=== PATIENT | female | born 1990 | race Caucasian/White ===

== ENCOUNTER 2024-04-05 21:47 | Emergency (ER) | payer BC, SELFPAY ==
[2024-04-05 21:51] VITALS: BP 143/99; PULSE 91; RESP 14; TEMP 36.8; O2SAT 100; BMI 20.1
[2024-04-05] MEDS: ondansetron 2 mg/ML SDV 2 mL 8 MG IVP (22:29)
[2024-04-05] MEDS: sodium chloride 0.9% 1,000 ML 999 ML IV ×2 (22:29→23:56)
[2024-04-05 22:40] LABS: Basophils # 0.1 10^3/uL (0.0-0.1); Basophils % 0.4 %; Eosinophils # 0.2 10^3/uL (0.0-0.8); Eosinophils % 0.5 %; Hematocrit 46.1 % (36-47); Lymphocytes # 1.7 10^3/uL (0.8-4.8); Lymphocytes % 5.8 %; Mean Corpuscular HGB Conc 34.7 g/dL (30-55); Mean Corpuscular Hemoglobin 29.5 pg (27-33); Mean Corpuscular Volume 85.1 fl (85-98); Mean Platelet Volume 9.3 fL (7.4-10.4); Monocytes # 1.6 10^3/uL (0.2-0.9); Monocytes % 5.6 %; Neutrophils # 24.77 10^3/uL (1.8-7.7); Neutrophils % 86.7 %; Nucleated Red Blood Cells % 0 %; Platelet Count 315 10^3/cmm (157-399); Red Blood Count 5.42 10^6/uL (3.85-5.65); Red Cell Distribution Width 11.8 % (12.1-15.1); White Blood Count 28.59 10^3/uL (3.29-11.43)
[2024-04-05 22:57] LABS: Alanine Aminotransferase 19 U/L (0-33); Albumin Level 4.4 g/dL (3.5-5.2); Alkaline Phosphatase 59 U/L (35-105); Aspartate Amino Transferase 15 U/L (0-32); Blood Urea Nitrogen 14 mg/dL (6-20); Calcium 9.4 mg/dL (8.5-10.5); Carbon Dioxide 20 mmol/L (22-29); Chloride 102 mmol/L (98-107); Creatinine Clr Calc Pharmacy 91.1318; Globulin 3.5 g/dL (1.3-4.6); Glomerular Filtration Rate 82.1 mL/min (90-130); Glucose 205 mg/dL (65-115); Magnesium 1.7 mg/dL (1.7-2.3); Osmolality Calculated 294 mOsm/kg (285-295); Sodium 139 mmol/L (136-145); Total Bilirubin 1.3 mg/dL (0.15-1.2); Total Protein 7.9 g/dL (6.6-8.7)
[2024-04-05 22:58] LABS: Lactic Sepsis W/Reflex 2.4 mmol/L (0.5-2.2)
[2024-04-05 23:02] LABS: Anion Gap 21.2 (5-19); Potassium 4.2 mmol/L (3.5-5.1)
[2024-04-05 23:29] LABS: Procalcitonin 0.04 ng/mL (0-0.5)
[2024-04-05 23:29] LABS: Add Urine Microscopic? YES; Bilirubin Urine 1+ (Negative); Blood Urine 2+ (Negative); Glucose Urine UA 1+ (Normal); Ketones Urine 3+ (Negative); Leukocyte Esterase Urine 1+ (Negative); Nitrate Urine Negative (Negative); Protein Urine Trace (Negative); Specific Gravity, Urine 1.025 (1.005-1.030); Urine Appearance Slightly Cloudy (CLEAR); Urine Color Yellow (Yellow); Urobilinogen Urine 1 mg/dL (Negative); pH Urine 5 (5-7)
[2024-04-05] MEDS: metoclopramide 5 mg/mL SDV 2 mL 10 MG IVP (23:29)
[2024-04-05 23:30] LABS: Add Urine Culture? No; Bacteria Urine 2+ /hpf; Mucus Urine 2+ /hpf; RBC Urine 0-4 /hpf (0-2)
[2024-04-05 23:32] VITALS: BP 125/80; PULSE 91; RESP 16; O2SAT 99
--- NOTE | 2024-04-05 23:47 | ED_ITS ---
HPI - Nausea/Vomiting/Diarrhea 2 General: Chief complaint: Nausea/Vomiting/Diarrhea Stated complaint: Throwing up Time Seen by Provider: 04/05/24 22:08 History of Present Illness: Patient presents to the ER for evaluation of nausea vomiting. Patient said this been going on for about a week but today got so bad she vomited about 20 times and is dry heaving. Patient is also having some diarrhea and a low-grade fever. Patient is unsure if she ate something funny however did she take a THC gummy earlier to coming to the ER hoping that that would help and it did not help. Patient states approximate 1 week ago when this started she went to the urgent care got diagnosed with a stomach virus and however they put her on prednisone, Flonase, Zyrtec, and Zofran and she has been taken these during this entire time. Have not helped. Review of Systems 2 General: Reports: 10 or more systems reviewed and unremarkable except in HPI and below Physical Exam 2 Const: COMMON NORMALS: no acute distress, average body habitus, patient oriented x3, no limitations, healthy appearing, alert and well nourished HENMT: COMMON NORMALS: normocephalic, atraumatic, hearing grossly normal bilaterally, external ears normal, Normal external nose present and moist oral mucous membranes HEAD & SCALP: normocephalic and atraumatic NOSE: Normal external nose present EXTERNAL EAR: Yes external ears normal Neck/C-Spine: COMMON NORMALS: no JVD Chest: COMMONS NORMALS: normal inspection of the chest and normal palpation of entire chest wall Resp: COMMON NORMALS: normal respiratory effort, No retractions, No use of accessory muscles and clear to auscultation bilaterally AUSCULTATION: clear to auscultation bilaterally Cardio: COMMON NORMALS: no JVD, regular rate, regular rhythm, S1 normal heart sound present, S2 normal heart sound present, No gallops present (Cardio), No clicks present (Cardio), No murmurs present (Cardio) and No rub (Cardio) R ATE: regular rate RHYTHM: regular rhythm HEART SOUNDS: S1 normal heart sound present and S2 normal heart sound present GI: COMMON NORMALS: Normal to inspection, nondistended, normoactive bowel sounds present, Soft to palpation, non-tender, No hepatosplenomegaly present and no masses PALPATION: Yes Soft to palpation and Yes No hepatosplenomegaly present Neuro: COMMON NORMALS: patient oriented x3 SENSORIUM/ORIENTATION: Yes alert Course 2 Vital Signs: Vital signs: Vital Signs Temperature 98.2 F 04/05/24 21:51 Pulse Rate 91 04/05/24 23:32 Respiratory Rate 16 04/05/24 23:32 Blood Pressure 125/80 04/05/24 23:32 Pulse Oximetry 99 04/05/24 23:32 Oxygen Delivery Me thod Room Air 04/05/24 23:32 MDM - Nausea/Vomiting/Diarrhea Medical Decision Making Patient presents with uncontrolled nausea vomiting with mild diarrhea. Patient had 2 L normal saline bolus along with 8 mg Zofran 10 mg Reglan patient is feeling much better. Lab work other than her white count being elevated 28.5 which is thought to be due to the aggressive nausea and vomiting she been having is essentially unremarkable. Does show she may be mildly dehydrated. Patient feels much better is ready go home. Patient be discharged Differential Diagnosis Likely gastroenteritis Medical Records I reviewed the patient's medical records. Lab Data I reviewed the patient's lab results. 04/05/24 22:32 04/05/24 22:32 Laboratory Results WBC 28.59 10^3/uL (3.29-11.43) H 04/05/24 22:32 RBC 5.42 10^6/uL (3.85-5.65) 04/05/24 22:32 Hgb 16.00 g/dL (11.27-16.99) 04/05/24 22:32 Hct 46.1 % (36-47) 04/05/24 22:32 MCV 85.1 fl (85-98) 04/05/24 22:32 MCH 29.5 pg (27-33) 04/05/24 22:32 MCHC 34.7 g/dL (30-55) 04/05/24 22:32 RDW 11.8 % (12.1-15.1) L 04/05/24 22:32 Plt Count 315 10^3/cmm (157-399) 04/05/24 22:32 MPV 9.3 fL (7.4-10.4) 04/05/24 22:32 Neut % (Auto) 86.7 % 04/05/24 22:32 Lymph % (Auto) 5.8 % 04/05/24 22:32 [place] % (Auto) 5.6 % 04/05/24 22:32 Eos % (Auto) 0.5 % 04/05/24:32 Baso % (Auto) 0.4 % 04/05/24 22:32 Neut # (Auto) 24.77 10^3/uL (1.8-7.7) H 04/05/24 22:32 Lymph # (Auto) 1.7 10^3/uL (0.8-4.8) 04/05/24 22:32 [place] # (Auto) 1.6 10^3/uL (0.2-0.9) H 04/05/24 22:32 Eos # (Auto) 0.2 10^3/uL (0.0-0.8) 04/05/24: Baso # (Auto) 0.1 10^3/uL (0.0-0.1) 04/05/24 22:32 Nucleated RBC % (auto) 0 % 04/05/24 22: Nucleated RBCs # 0.0 /100WBC 04/05/24 22:32 Sodium 139 mmol/L (136-145) 04/05/24 22:32 Potassium 4.2 mmol/L (3.5-5.1) 04/05/24 22:32 Chloride 102 mmol/L (98-107) 04/05/24 22:32 Carbon Dioxide 20 mmol/L (22-29) L 04/05/24 22:32 Anion Gap 21.2 (5-19) H 04/05/24 22:32 BUN 14 mg/dL (6-20) 04/05/24 22:32 Creatinine 0.8 mg/dL (0.5-0.9) 04/05/24 22:32 GFR Calculation 82.1 mL/min (90-130) L 04/05/24 22:32 Glucose 205 mg/dL (65-115) H 04/05/24 22:32 Calculated Osmolality 294 mOsm/kg (285-295) 04/05/24 22:32 Lactic Acid 2.4 mmol/L (0.5-2.2) H 04/05/24 22:32 Calcium 9.4 mg/dL (8.5-10.5) 04/05/24 22:32 Magnesium 1.7 mg/dL (1.7-2.3) 04/05/24 22:32 Total Bilirubin 1.3 mg/dL (0.15-1.2) H 04/05/24 22:32 AST 15 U/L (0-32) 04/05/24 22:32 ALT 19 U/L (0-33) 04/05/24 22:32 Alkaline Phosphatase 59 U/L (35-105) 04/05/24 22:32 Total Protein 7.9 g/dL (6.6-8.7) 04/05/24 22:32 Albumin 4.4 g/dL (3.5-5.2) 04/05/24 22:32 Globulin 3.5 g/dL (1.3-4.6) 04/05/24 22:32 Procalcitonin 0.04 ng/mL (0-0.5) 04/05/24 22:32 Urine Color Yellow (Yellow) 04/05/24 23:02 Urine Appearance Slightly cloudy (CLEAR) 04/05/24 23:02 Urine pH 5 (5-7) 04/05/24 23:02 Ur Specific [place] 1.025 (1.005-1.030) 04/05/24 23:02 Urine Protein Trace (Negative) 04/05/24 23:02 Urine Glucose (UA) 1+ (Normal) H 04/05/24 23:02 Urine Ketones 3+ (Negative) H 04/05/24 23:02 Urine Blood 2+ (Negative) H 04/05/24 23:02 Urine Nitrate Negative (Negative) 04/05/24 23:02 Urine Bilirubin 1+ (Negative) H 04/05/24 23:02 Urine Urobilinogen 1 mg/dL (Negative) H 04/05/24 23:02 Ur Leukocyte Esterase 1+ (Negative) H 04/05/24 23:02 Urine RBC 0-4 /hpf (0-2) H 04/05/24 23:02 Urine WBC 11-20 /hpf (0-5) 04/05/24 23:02 Ur Squamous Epith Cells 11-20 /hpf (0-5) 04/05/24 23:02 Amorphous Sediment Not Reportable 04/05/24 23:02 Urine Bacteria 2+ /hpf (NONE) H 04/05/24 23:02 Urine Mucus 2+ /hpf 04/05/24 23:02 All radiology interpretation(s) finalized by discharge Discharge Plan Discharge Patient Disposition: Home Clinical Impression: Gastroenteritis, Dehydration Condition: Stable Discharge Orders: Discharge ED (Routine); Ordered 04/06/24 Ordered By: Titi Munoz Patient Instructions: Gastroenteritis (ED), Dehydration (ED) Activity Restrictions/Additional Instructions: Thank you for choosing [facility] for your healthcare needs today. Please realize that you were seen in the emergency department and that we are providing you with an emergency medical screening exam and this may not be a complete and all exclusive of all testing and/or medical workup we may need to determine your element or severity of your illness. It is very important that you follow-up as instructed with your primary care provider or specialist for the additional evaluation and to discuss your medical treatment plan. You may return to the emergency department should you have concerns or if your condition changes or worsens in any way. Coding Level of Care Code ED [employer] Hel[employer] for [facility]
[2024-04-06 00:32] LABS: Reflex Lactate Order REFLEX LACTIC ORDERD
[2024-04-06 00:57] VITALS: BP 120/74; PULSE 95; O2SAT 96
== END 2024-04-06 00:59 | disposition home or self-care (01) ==
PROVIDERS: Emergency Provider Emergency Medicine
DX: K52.9 Noninfective gastroenteritis and colitis, unspecified (principal); E86.0 Dehydration
CPT/HCPCS: 80053; 81001; 83605; 83735; 84145; 85025; 96361; 96374; 96375; 99284; J2405; J2765; J7030